=== PATIENT | female | born 1970 | race Caucasian/White ===

== ENCOUNTER 2017-08-28 16:36 | Emergency (ER) | payer OTHER ==
[~2017-08-28] VITALS: Ht 154.9 cm; Wt 74.8 kg
[2017-08-28 16:51] VITALS: Ht 154.9 cm; Wt 74.8 kg
[2017-08-28 18:18] LABS: BASOPHIL % 0.4 % (0-2); PLATELET COUNT 266 x10^3mcL (130-400); RED CELL DISTRIBUTION WIDTH 13.6 % (11.5-14.5)
[2017-08-28 18:36] LABS: CALCIUM 8.3 mg/dL (8.5-10.1); CARBON DIOXIDE 27.5 mmol/L (21-32); CHLORIDE SERUM 106 mmol/L (98-107); CREATININE SERUM 0.7 mg/dL (0.6-1.0); GFR1 > 60 mL/min; GLUCOSE SERUM 63 mg/dL (74-106); SODIUM SERUM 142 mmol/L (136-145)
[2017-08-28 18:41] LABS: ALKALINE PHOSPHATASE 90 U/L (46-116); ALT/SGPT 47 U/L (14-59); AST/SGOT 43 U/L (15-37); BILIRUBIN TOTAL 0.1 mg/dL (0.20-1.00); TOTAL PROTEIN, SERUM 6.5 g/dL (6.4-8.2)
[2017-08-28 18:42] LABS: ALBUMIN 2.9 g/dL (3.4-5.0)
[2017-08-28 19:54] VITALS: BP 111/71
== END 2017-08-28 19:54 | disposition home or self-care (01) ==
LOC: ED 16:36
PROVIDERS: Specialist
DX: M79.652 Pain in left thigh (principal)
CPT/HCPCS: 36415; Q0092